=== PATIENT | male | born 1960 | race Caucasian/White ===

== ENCOUNTER 2025-03-03 13:40 | Emergency (ER) | payer MEDICARE, SELFPAY ==
[2025-03-03 13:47] VITALS: BP 160/94; PULSE 93; RESP 20; TEMP 36.9; O2SAT 98; BMI 29.8
--- NOTE | 2025-03-03 14:02 | ED_ITS ---
HPI - General Adult General Time Seen by Provider: 14:02 <Zohreh Jacobsen MD - Last Filed: 03/03/25 16:50> Date Seen: 03/03/25 <Zohreh Jacobsen MD - Last Filed: 03/03/25 16:50> Chief complaint: Unspecified Complaint, Adult <Zohreh Jacobsen MD - Last Filed: 03/03/25 16:50> Stated complaint: trouble staying warm <Zohreh Jacobsen MD - Last Filed: 03/03/25 16:50> Time Seen by Provider: 03/03/25 14:02 <Zohreh Jacobsen MD - Last Filed: 03/03/25 16:50> Source: patient and RN notes reviewed <Zohreh Jacobsen MD - Last Filed: 03/03/25 16:50> Mode of arrival: ambulatory <Zohreh Jacobsen MD - Last Filed: 03/03/25 16:50> Limitations: no limitations <Zohreh Jacobsen MD - Last Filed: 03/03/25 16:50> History of Present Illness HPI narrative: Joseph is a 64-year-old gentleman with a history of T-cell lymphoma, chronic dermatitis since 2021 who comes to the emergency room in [place] for the 1st time for evaluation regarding increasing edema of the lower extremities and redness of the body. His complaint is that he is also feeling cold. He actually describes intermittent coldness since November but now chills over the past few days. He has taken his temp but it was only 99. Over the last 5 days he has noticed increasing edema of his lower extremities in association with decreased urination. He notes he is drinking normally but is urine seems darker. A Elver notes that he has had persistent dermatitis on his hands for 3 years and on other parts of the body over the past year. However his lower extremities in the last 48 hours are much more red than normal. 4 days ago he went fishing and sustained sunburn on his right hand which blistered. He notes that he has not had any belly pain or diarrhea. Denies a cough for sore throat. He does not have any painful urination. Complicating the situation is that he was fishing on SundayFebruary 27 and sustained sun ramos to his hands and his face. His right hand blistered because of this. In regards to his T-cell lymphoma he doctors at the [facility]. This gentleman has been on Otezla in the past but because of insurance problems most recently has been using Roflumilast. He has also been on recurrent courses of prednisone throughout the past year. <Zohreh Jacobsen MD - Last Filed: 03/03/25 16:50> Related Data Home medications: Home Medications ?Medication ?Instructions ?Recorded ?Confirmed atorvastatin 40 mg tablet 40 mg PO DAILY 03/03/25/05/01 roflumilast .ROUTE 03/03/25 Previous Rx's ?Medication ?Instructions ?Recorded furosemide 20 mg tablet (Lasix) 20 mg PO DAILY #10 tab s 03/03/25 triamcinolone acetonide 0.1 % 1 applic topical BID #30 grams 03/03/25 topical cream <Zohreh Jacobsen MD - Last Filed: 03/03/25 16:50> Allergies/adverse reactions: Allergies Allergy/AdvReac Type Severity Reaction Status Date / Time No Known Drug Allergies Allergy Verified 03/03/25 13:55 <Zohreh Jacobsen MD - Last Filed: 03/03/25 16:50> Review of Systems Status of ROS: Reports: 10 or more systems reviewed and unremarkable except as noted in History and below <Zohreh Jacobsen MD - Last Filed: 03/03/25 16:50> Const: Reports: chills and fatigue; Denies: fever <Zohreh Jacobsen MD - Last Filed: 03/03/25 16:50> Eyes: Denies: change in vision <Zohreh Jacobsen MD - Last Filed: 03/03/25 16:50> ENMT: Denies: throat pain, neck pain or nasal congestion <Zohreh Jacobsen MD - Last Filed: 03/03/25 16:50> Cardio: Reports: swelling of feet/ankles; Denies: chest pain, lightheadedness or shortness of breath with exertion <Zohreh Jacobsen MD - Last Filed: 03/03/25 16:50> Resp: Denies: shortness of breath or cough <Zohreh Jacobsen MD - Last Filed: 03/03/25 16:50> GI: Denies: abdominal pain, nausea, vomiting or diarrhea <Zohreh Jacobsen MD - Last Filed: 03/03/25 16:50> : Denies: painful urination <Zohreh Jacobsen MD - Last Filed: 03/03/25 16:50> Musculo: Denies: neck pain <Zohreh Jacobsen MD - Last Filed: 03/03/25 16:50> Integ/Breast: Reports: redness, skin tenderness and skin swelling <Zohreh Jacobsen MD - Last Filed: 03/03/25 16:50> Endo: Reports: fatigue <Zohreh Jacobsen MD - Last Filed: 03/03/25 16:50> PFSH PFSH Social History: Social History Smoking Status: Never smoker Do you use any of these nicotine containing products: None Second hand tobacco smoke exposure: No How often do you have a drink containing alcohol: 2-4 times a month How many standard drinks containing alcohol do you have on a typical day: 1 or 2 AUDIT-C Alcohol total score: 2 Non-prescribed substance use: denies use <Zohreh Jacobsen MD - Last Filed: 03/03/25 16:50> Exam Narrative: Exam Narrative: Joseph is alert and oriented. EOM is full. Lips are with scabbing and peeling. Face is otherwise symmetrical. Neck is supple without lymphadenopathy. Heart with regular rate and rhythm and lungs are clear abdomen soft. Examination of the body shows redness throughout. On his hands he has peeling skin on the left hand his right hand was covered with gauze which removed really removed and he has and unroofed area of open blister on the right hand. Erythema extends onto the trunk. Lower extremities with dark erythema and 2+ edema. Does appear to be tender to the touch. <Zohreh Jacobsen MD - Last Filed: 03/03/25 16:50> Const: Vital Signs, click to edit/add: Vital Signs - 24 hr 03/03/25 13:47 03/03/25 15:40 03/03/25 17:40 Temperature 98.4 F Pulse Rate [Pulse Oximeter] 93 78 87 Respiratory Rate 20 16 16 Blood Pressure [Le ft Upper Arm] 160/94 H 147/86 H 144/89 H Pulse Oximetry 98 98 96 Oxygen Delivery Me thod Room Air Room Air Room Air <Zohreh Jacobsen MD - Last Filed: 03/03/25 16:50> Vital Signs, click to edit/add: Vital Signs - 24 hr 03/03/25 13:47 03/03/25 15:40 03/03/25 17:40 Temperature 98.4 F Pulse Rate [Pulse Oximeter] 93 78 87 Respiratory Rate 20 16 16 Blood Pressure [Le ft Upper Arm] 160/94 H 147/86 H 144/89 H Pulse Oximetry 98 98 96 Oxygen Delivery Me thod Room Air Room Air Room Air <Danis Blanton MD - Last Filed: 03/03/25 18:20> Documenting provider has reviewed patient's vital signs: yes <Zohreh Jacobsen MD - Last Filed: 03/03/25 16:50> Course Course ED Course: Differential diagnosis includes but is not limited to vasculitis, Duran- Mio, drug reaction, UTI. At this time will place IV and draw labs to include CBC, comprehensive, sed rate, CRP, urinalysis. Will also do EKG troponin chest x-ray. Plan on speaking to the [facility] specialist in regards to this gentleman once labs have been returned. <Zohreh Jacobsen MD - Last Filed: 03/03/25 16:50> Reevaluation(s) Reevaluation #1: Labs are reassuring with normal white count mildly elevated CRP of 1 point 6. ProBNP is normal at 25, kidney function normal with a creatinine of 0.9 and sed rate is 14. <Zohreh Jacobsen MD - Last Filed: 03/03/25 16:50> Vital Signs Vital signs: Initial Vital Signs Temperature 98.4 F 03/03/25 13:47 Temperature Source Oral 03/03/25 13:47 Pulse Rate 93 03/03/25 13:47 Respiratory Rate 20 03/03/25 13:47 Blood Pressure 160/94 H 03/03/25 13:47 Blood Pressure Mean 116 H 03/03/25 13:47 Blood Pressure Position Sitting 03/03/25 13:47 Pulse Oximetry 98 03/03/25 13:47 Oxygen Delivery Method Room Air 03/03/25 13:47 Vital Signs Temperature 98.4 F 03/03/25 13:47 Pulse Rate 93 03/03/25 13:47 Respiratory Rate 20 03/03/25 13:47 Blood Pressure 160/94 H 03/03/25 13:47 Pulse Oximetry 98 03/03/25 13:47 Oxygen Delivery Method Room Air 03/03/25 13:47 Temperature 98.4 F 03/03/25 13:47 Pulse Rate 87 03/03/25 17:40 Respiratory Rate 16 03/03/25 17:40 Blood Pressure 144/89 H 03/03/25 17:40 Pulse Oximetry 96 03/03/25 17:40 Oxygen Delivery Method Room Air 03/03/25 17:40 <Zohreh Jacobsen MD - Last Filed: 03/03/25 16:50> Initial Vital Signs Temperature 98.4 F 03/03/25 13:47 Temperature Source Oral 03/03/25 13:47 Pulse Rate 93 03/03/25 13:47 Respiratory Rate 20 03/03/25 13:47 Blood Pressure 160/94 H 03/03/25 13:47 Blood Pressure Mean 116 H 03/03/25 13:47 Blood Pressure Position Sitting 03/03/25 13:47 Pulse Oximetry 98 03/03/25 13:47 Oxygen Delivery Method Room Air 03/03/25 13:47 Vital Signs Temperature 98.4 F 03/03/25 13:47 Pulse Rate 93 03/03/25 13:47 Respiratory Rate 20 03/03/25 13:47 Blood Pressure 160/94 H 03/03/25 13:47 Pulse Oximetry 98 03/03/25 13:47 Oxygen Delivery Method Room Air 03/03/25 13:47 Temperature 98.4 F 03/03/25 13:47 Pulse Rate 87 03/03/25 17:40 Respiratory Rate 16 03/03/25 17:40 Blood Pressure 144/89 H 03/03/25 17:40 Pulse Oximetry 96 03/03/25 17:40 Oxygen Delivery Method Room Air 03/03/25 17:40 <Danis Blanton MD - Last Filed: 03/03/25 18:20> Medical Decision Making MDM Narrative Medical decision making narrative: 1. Sunburn-on hands and face. Covered with Adaptic dressing on right hand were blisters have broken open. 2. Erythema-confluent throughout the body. Associated with lower extremity edema. Labs are reassuring. Currently awaiting discussion with [facility] 3. Disposition-this case will be signed out to my colleague Dr. Blanton. <Zohreh Jacobsen MD - Last Filed: 03/03/25 16:50> 1. Sunburn-on hands and face. Covered with Adaptic dressing on right hand were blisters have broken open. 2. Erythema-confluent throughout the body. Associated with lower extremity edema. Labs are reassuring. Currently awaiting discussion with [facility] 3. Disposition-this case will be signed out to my colleague Dr. Blanton. 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 I then was able to speak with a dermatology resident, Dr. Workman, who works with his regular spooler operator automatic. They will be able to fit him in for an appointment tomorrow morning. He is okay to return home. This spooler operator automatic stated that he would be okay for him to take Lasix for the edema and I did also provide a prescription for triamcinolone cream. <Danis Blanton MD - Last Filed: 03/03/25 18:20> Lab Data Lab results reviewed: Yes I reviewed the patient's lab results <Zohreh Jacobsen MD - Last Filed: 03/03/25 16:50> Labs: Lab Results 03/03/25 03/03/25 03/03/25 Range/Units 14:50 14:57 15:12 WBC 6.10 (4.50-11.00) K/uL RBC 4.86 (4.30-5.90) m/uL Hgb 14.7 (13.5-17.5) gm/dL Hct 43.0 (37.0-53.0) % MCV 89 (80-100) fL MCH 30 (26-34) pg MCHC 34 (32-36) gm/dL RDW Coeff of Jesusita 11.7 (11.5-15.5) % Plt Count 212 (140-440) K/uL Neut % (Auto) 58.2 (42.0-72.0) % Lymph % (Auto) 15.1 L (20-44) % Montezuma % (Auto) 21.6 H (0.0-11.0) % Eos % (Auto) 2.8 (0.0-7.0) % Baso % (Auto) 0.8 (0.0-3.0) % Neut # (Auto) 3.55 (1.7-7.0) K/uL Lymph # (Auto) 0.90 (0.90-2.90) K/uL [place] # (Auto) 1.30 H (0.00-0.90) K/UL Eos # (Auto) 0.17 (0.00-0.50) K/uL Baso # (Auto) 0.05 (0.00-0.30) K/uL Abs Immat Gran (auto) 0.09 (0.00-0.30) K/uL Imm/Tot Granulo (auto) 1.5 % ESR 14 (2-15) mm/hr Sodium 140 (135-149) mmol/L Potassium 3.7 (3.6-5.1) mmol/L Chloride 102 (96-114) mmol/L Carbon Dioxide 28 (20-32) mmol/L Anion Gap 10 (7-15) mEq/L BUN 19 (7-30) mg/dL Creatinine 0.9 (0.5-1.5) mg/dL Estimated Creat Clear 73.65 Estimated GFR 95 ml/min Glucose 193 H (60-115) mg/dL Calcium 9.2 (8.4-10.6) mg/dL Total Bilirubin 1.5 (0.1-1.5) mg/dL AST 41 H (12-35) U/L ALT 41 (4-50) U/L Alkaline Phosphatase 76 (40-150) U/L Troponin I < 0.01 (0.01-0.04) ng/mL C-Reactive Protein 1.6 H (0.5-1.0) mg/dL NT-Pro-B Natriuret Pep 25 (See Note) pg/mL Total Protein 7.5 (6.0-8.3) g/dL Albumin 4.5 (3.3-5.0) g/dL TSH 2.270 (0.270-4.200) uIU/mL Urine Color Yellow (Yellow) Urine Appearance Clear (Clear) Urine pH 5.5 (5.0-8.5) Ur Specific B[place]ule 1.025 (1.000-1.030) Urine Protein Negative (Negative) Urine Glucose (UA) Negative (Negative) Urine Ketones Negative (Negative) Urine Blood Trace-intact A (Negative) Urine Nitrite Negative (Negative) Urine Bilirubin Negative (Negative) Urine Urobilinogen 0.2 (0.2-1.0) Ur Leukocyte Esterase Negative (Negative) Urine RBC 0-2 (0-2) Urine WBC 0-2 (0-5) Ur Squamous Epith Cells None (None-Few) Urine Bacteria None (None) Lab Acknowledgement Test Added <Zohreh Jacobsen MD - Last Filed: 03/03/25 16:50> Lab Results 03/03/25 03/03/25 03/03/25 Range/Units 14:50 14:57 15:12 WBC 6.10 (4.50-11.00) K/uL RBC 4.86 (4.30-5.90) m/uL Hgb 14.7 (13.5-17.5) gm/dL Hct 43.0 (37.0-53.0) % MCV 89 (80-100) fL MCH 30 (26-34) pg MCHC 34 (32-36) gm/dL RDW Coeff of Jesusita 11.7 (11.5-15.5) % Plt Count 212 (140-440) K/uL Neut % (Auto) 58.2 (42.0-72.0) % Lymph % (Auto) 15.1 L (20-44) % Montezuma % (Auto) 21.6 H (0.0-11.0) % Eos % (Auto) 2.8 (0.0-7.0) % Baso % (Auto) 0.8 (0.0-3.0) % Neut # (Auto) 3.55 (1.7-7.0) K/uL Lymph # (Auto) 0.90 (0.90-2.90) K/uL [place] # (Auto) 1.30 H (0.00-0.90) K/UL Eos # (Auto) 0.17 (0.00-0.50) K/uL Baso # (Auto) 0.05 (0.00-0.30) K/uL Abs Immat Gran (auto) 0.09 (0.00-0.30) K/uL Imm/Tot Granulo (auto) 1.5 % ESR 14 (2-15) mm/hr Sodium 140 (135-149) mmol/L Potassium 3.7 (3.6-5.1) mmol/L Chloride 102 (96-114) mmol/L Carbon Dioxide 28 (20-32) mmol/L Anion Gap 10 (7-15) mEq/L BUN 19 (7-30) mg/dL Creatinine 0.9 (0.5-1.5) mg/dL Estimated Creat Clear 73.65 Estimated GFR 95 ml/min Glucose 193 H (60-115) mg/dL Calcium 9.2 (8.4-10.6) mg/dL Total Bilirubin 1.5 (0.1-1.5) mg/dL AST 41 H (12-35) U/L ALT 41 (4-50) U/L Alkaline Phosphatase 76 (40-150) U/L Troponin I < 0.01 (0.01-0.04) ng/mL C-Reactive Protein 1.6 H (0.5-1.0) mg/dL NT-Pro-B Natriuret Pep 25 (See Note) pg/mL Total Protein 7.5 (6.0-8.3) g/dL Albumin 4.5 (3.3-5.0) g/dL TSH 2.270 (0.270-4.200) uIU/mL Urine Color Yellow (Yellow) Urine Appearance Clear (Clear) Urine pH 5.5 (5.0-8.5) Ur Specific [place] 1.025 (1.000-1.030) Urine Protein Negative (Negative) Urine Glucose (UA) Negative (Negative) Urine Ketones Negative (Negative) Urine Blood Trace-intact A (Negative) Urine Nitrite Negative (Negative) Urine Bilirubin Negative (Negative) Urine Urobilinogen 0.2 (0.2-1.0) Ur Leukocyte Esterase Negative (Negative) Urine RBC 0-2 (0-2) Urine WBC 0-2 (0-5) Ur Squamous Epith Cells None (None-Few) Urine Bacteria None (None) Lab Acknowledgement Test Added <Danis Blanton MD - Last Filed: 03/03/25 18:20> Imaging Data Chest x-ray: Attestation: I have reviewed the pertinent imaging results. <Zohreh Jacobsen MD - Last Filed: 03/03/25 16:50> Radiologist's impression: No pneumothorax or pleural effusion. 2.7 cm nodular density in the right hilar region. Lungs otherwise clear. Cardiac and mediastinal contours otherwise within normal limits. Upper abdomen and osseous structures as imaged show no acute abnormality. IMPRESSION: Right hilar density concerning for pulmonary nodule or lymphadenopathy. <Zohreh Jacobsen MD - Last Filed: 03/03/25 16:50> ECG Data Attestation: I personally reviewed and interpreted this ECG as follows: <Zohreh Jacobsen MD - Last Filed: 03/03/25 16:50> Interpretation: EKG by my read shows sinus rhythm at a rate of 87. I do not note any acute ST or T-wave changes. Good R-wave progression. QT and FL intervals within normal limits. <Zohreh Jacobsen MD - Last Filed: 03/03/25 16:50> Discharge Plan Discharge Clinical Impression: Mycosis fungoides <Zohreh Jacobsen MD - Last Filed: 03/03/25 16:50> Patient Disposition: Home, Self-Care <Zohreh Jacobsen MD - Last Filed: 03/03/25 16:50> Condition: Stable <Zohreh Jacobsen MD - Last Filed: 03/03/25 16:50> Additional Instructions: Follow-up with dermatology clinic tomorrow morning. You will receive a call for specifics regarding time. Take Lasix as needed and directed. Also a prescription for triamcinolone cream is provided. <Zohreh Jacobsen MD - Last Filed: 03/03/25 16:50> Prescriptions: New triamcinolone acetonide 0.1 % cream 1 applic topical BID Qty: 30 0RF furosemide [Lasix] 20 mg tablet 20 mg PO DAILY Qty: 10 2RF No Action roflumilast .ROUTE atorvastatin 40 mg tablet 40 mg PO DAILY <Zohreh Jacobsen MD - Last Filed: 03/03/25 16:50> Follow Up/Referrals: Lv Samuel MD [Primary Care Provider, Family Practice] <Zohreh Jacobsen MD - Last Filed: 03/03/25 16:50> Stand Alone Forms: [employer] Info Instructions <Zohreh Jacobsen MD - Last Filed: 03/03/25 16:50>
--- OUTSIDE RECORDS SUMMARY | 2025-03-03 14:51 | XMS_ITS | Encounter Summary ---
Author Organization [facility] Address [address] [place] [address] Care Team Providers Care Flow Match Sofa Cutter Name Role Phone Ebony Avina MD Unavailable [phone] Lv Samuel MD Primary Care Provider [phone] Diamond Blanchard [facility] Unavailable Diamond Blanchard [facility] Unavailable [phone] Ebony Avina MD Unavailable [phone] Ebony Avina MD Unavailable [phone] Encounter Details Date Type Department Care Team (Late st Contact Info) Description 11/05/2024 MyC Medical Advice [facility] Dermatology [facility] [address] [address] Diamond Blanchard, [facility] [address] [place], [place] [id number] Social History Tobacco Use Types Packs/Day Years Used Date Smoking Tobacco: Former Cigarettes Q uit: 02/25/1993 Smokeless Tobacco: Never PHQ-2 Answer Date Recorded PHQ-2 Score 0 11/05/2024 Adolescent Education Answer Date Record ed Getting School Help Needed Not on file 07/22 Sex and Gender Information Value Date Recorded Sex Assigned at Not on file 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 Gender Identity Not on file Sexual Orientation Not on file documented as of this encounter Plan of Treatment Upcoming Encounters Date Type Department Care Team (Late st Contact Info) Description 03/30/2025 10:00 AM CDT Office Visit [facility] D[facility] Clinic [place] [id number] [facility] [address] [place] [phone] Ebony Avina MD [address] [address] documented as of this encounter Visit Diagnoses Not on filedocumented in this encounter Care Teams Flow Match Sofa Cutter Relationship Specialty Start Date End Date Lv Samuel MD [facility] [id number] [place] [address] PCP - General Family Medicine 09/25/23 Ebony Avina MD [address] [address] Dermatology 01/26/23 Diamond Blanchard [facility] [address] [place] [address] LUCI MENDEZ [phone] Pharmacist Pharmacist 11/14/23 Diamond Blanchard [facility] [address] [place] [address] LUCI MENDEZ [id number] Assigned MTM Pharmacist 11/30/23 Ebony Avina MD [address] [address] Assigned Surgical Provider 09/29/24 Ebony Avina MD [address] [address] Assigned Dermatology Provider 12/28/24 documented as of this encounter
--- OUTSIDE RECORDS SUMMARY | 2025-03-03 14:51 | XMS_ITS | Encounter Summary ---
Author Organization [facility] Address [address] [place] [address] Care Team Providers Care Hand Chain Maker Name Role Phone Ebony Avina MD Unavailable [phone] Lv Samuel MD Primary Care Provider [phone] Diamond Blanchard [facility] Unavailable [phone] Diamond Blanchard [facility] Unavailable [phone] Ebony Avina MD Unavailable [phone] Ebony Avina MD Unavailable [phone] Encounter Details Date Type Department Care Team (Late st Contact Info) Description 11/07/2024 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 Gender Identity Not on file Sexual Orientation Not on file documented as of this encounter Plan of Treatment Upcoming Encounters Date Type Department Care Team (Late st Contact Info) Description 03/30/2025 10:00 AM CDT Office Visit [facility] D[facility]atology [facility] [place] [address] [facility] [address] [place] [phone] Ebony Avina MD [address] [address] documented as of this encounter Visit Diagnoses Not on filedocumented in this encounter Care Teams Hand Chain Maker Relationship Specialty Start Date End Date Lv Samuel MD [facility] [id number] [place] [address] PCP - General Family Medicine 09/25/23 Ebony Avina MD [address] [address] Dermatology 01/26/23 Diamond Blanchard [facility] [address] [place] [address] LUCI MENDEZ [phone] Pharmacist Pharmacist 11/14/23 Diamond Blanchard [facility] [address] [place] [address] LUCI MENDEZ [phone] Assigned MTM Pharmacist 11/30/23 Ebony Avina MD [address] [address] Assigned Surgical Provider 09/29/24 Ebony Avina MD [address] [address] Assigned Dermatology Provider 12/28/24 documented as of this encounter
--- OUTSIDE RECORDS SUMMARY | 2025-03-03 14:51 | XMS_ITS | Encounter Summary ---
Author Organization [facility] Address [address] [place] [address] Care Team Providers Care Unit Control Worker Name Role Phone Ebony Avina MD Unavailable [phone] Lv Samuel MD Primary Care Provider [phone] Diamond Blanchard [facility] Unavailable [phone] Diamond Blanchard [facility] Unavailable [phone] Micky Umana MD Unavailable [phone] Ebony Avina MD Unavailable [phone] Micky Umana MD Unavailable [phone] Ebony Avina MD Unavailable [phone] Ebony Avina MD Unavailable [phone] Encounter Details Date Type Department Care Team (Late st Contact Info) Description 02/24/2024 [facility] Medical Advice [facility] [place] [address] [facility] [address] [place] [address] Ebony Avina MD [address] [facility] [address] [place] [address] Social History Tobacco Use Types Packs/Day Years Used Date Smoking Tobacco: Former Cigarettes Q uit: 02/25/1993 Smokeless Tobacco: Never PHQ-2 Answer Date Recorded PHQ-2 Score 0 10/15/2023 Adolescent Education Answer Date Record ed Getting School Help Needed Not on file 07/22 Sex and Gender Information Value Date Recorded Sex Assigned at Not on file 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 Gender Identity Not on file Sexual Orientation Not on file documented as of this encounter Plan of Treatment Upcoming Encounters Date Type Department Care Team (Late st Contact Info) Description 03/30/2025 10:00 AM CDT Office Visit [facility] [address]rd [place] [phone] Ebony Avina MD [address] [place] [address] documented as of this encounter Visit Diagnoses Not on filedocumented in this encounter Care Teams Unit Control Worker Relationship Specialty Start Date End Date Lv Samuel MD [address] [address] PCP - General Family Medicine 09/25/23 Ebony Avina MD [address] [place] [address] Dermatology 01/26/23 Diamond Blanchard [facility] [address] [place] [address] LUCI MENDEZ [address] Pharmacist Pharmacist 11/14/23 Diamond Blanchard [facility] [address] [place] [address] LUCI MENDEZ [id number] Assigned MTM Pharmacist 11/30/23 Micky Umana MD [address] [place] [address] Assigned Surgical Provider 11/30/23 Ebony Avina MD [address] [address] Assigned Surgical Provider 06/30/24 Micky Umana MD [address] [place] [address] Assigned Surgical Provider 08/30/24 Ebony Avina MD [address] [address] Assigned Surgical Provider 09/29/24 Ebony Avina MD [address] [address] Assigned Dermatology Provider 12/28/24 documented as of this encounter
--- OUTSIDE RECORDS SUMMARY | 2025-03-03 14:51 | XMS_ITS | Encounter Summary ---
Author Organization [place] Address [address] [place] [address] Care Team Providers Care Digital Operations Analyst Name Role Phone Ebony Avina MD Unavailable Lv Samuel MD Primary Care Provider [phone] Diamond Blanchard [facility] Unavailable [phone] Diamond Blanchard [facility] Unavailable [phone] Micky Umana MD Unavailable [phone] Ebony Avina MD Unavailable [phone] Micky Umana MD Unavailable [phone] Ebony Avina MD Unavailable [phone] Ebony Avina MD Unavailable [phone] Encounter Details Date Type Department Care Team (Latest Contact Info) Description 06/10/2024 [facility] Medical Advice [facility] [place] [address] [place] [address] Diamond Blanchard, [address] [place] [address] Other atopic dermatitis (Primary Dx) Social History Tobacco Use Types Packs/Day Years Used Date Smoking Tobacco: Former Cigarettes Q uit: 02/25/1993 Smokeless Tobacco: Never PHQ-2 Answer Date Recorded PHQ-2 Score 0 10/15/2023 Adolescent Education Answer Date Record ed Getting School Help Needed Not on file 07/22 Sex and Gender Information Value Date Recorded Sex Assigned at Not on file 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 Diamond Blanchard, PharmD [facility] Pharmacist documented in this encounter Plan of Treatment Upcoming Encounters Date Type Department Care Team (Late st Contact Info) Description 03/30/2025 10:00 AM CDT Office Visit [facility] [address] 3rd [place] [address] Ebony Avina MD [address] [place] [address] documented as of this encounter Visit Diagnoses Diagnosis Other atopic dermatitis- Primary documented in this encounter Care Teams Digital Operations Analyst Relationship Specialty Start Date End Date Lv Samuel MD [facility] [id number] [place] [address] PCP - General Family Medicine 09/25/23 Ebony Avina MD [address] [place] [address]165 Dermatology 01/26/23 Diamond Blanchard RPH [address] [facility] [place]ENDEZ [address] Pharmacist Pharmacist 11/14/23 Diamond Blanchard RPH [address] [facility] [place] [address] Assigned MTM Pharmacist 11/30/23 Micky Umana MD [address] [place] [address] Assigned Surgical Provider 11/30/23 Ebony Avina MD [address] [address] Assigned Surgical Provider 06/30/24 Micky Umana MD [address] [place] [address] Assigned Surgical Provider 08/30/24 Ebony Avina MD [address] [address] Assigned Surgical Provider 09/29/24 Ebony Avina MD [address] [address] Assigned Dermatology Provider 12/28/24 documented as of this encounter
--- OUTSIDE RECORDS SUMMARY | 2025-03-03 14:51 | XMS_ITS | Encounter Summary ---
Author Organization [place] Address [address] [place] [address] Care Team Providers Care Elastic Yarn Twister Helper Name Role Phone Ebony Avina MD Unavailable Lv Samuel MD Primary Care Provider [phone] Diamond Blanchard [facility] Unavailable [phone] Diamond Blanchard [facility] Unavailable [phone] Ebony Avina MD Unavailable [phone] Encounter Details Date Type Department Care Team (Late st Contact Info) Description 03/02/2025 [facility] [address] 3rd [place] [address] Ebony Avina MD [address] [place] [address] Social History Tobacco Use Types Packs/Day Years Used Date Smoking Tobacco: Former Cigarettes Q uit: 02/25/1993 Smokeless Tobacco: Never PHQ-2 Answer Date Recorded PHQ-2 Score 0 11/05/2024 Adolescent Education Answer Date Record ed Getting School Help Needed Not on file 07/22 Sex and Gender Information Value Date Recorded Sex Assigned at Not on file 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 Gender Identity Not on file Sexual Orientation Not on file documented as of this encounter Plan of Treatment Upcoming Encounters Date Type Department Care Team (Late st Contact Info) Description 03/30/2025 10:00 AM CDT Office Visit [facility] [place] [address] [facility] [address] 3rd [place] [address] Ebony Avina MD [address] [facility] [address] [address] documented as of this encounter Visit Diagnoses Not on filedocumented in this encounter Care Teams Elastic Yarn Twister Helper Relationship Specialty Start Date End Date Lv Samuel MD [facility] [address] [place] [address] PCP - General Family Medicine 09/25/23 Ebony Avina MD [address] [address] Dermatology 01/26/23 Diamond Blanchard [facility] [address] [place] [address] LU[place] MENDEZ [address] Pharmacist Pharmacist 11/14/23 Diamond Blanchard [facility] [address] [place] [address] [place]DEZ [address] Assigned MTM Pharmacist 11/30/23 Ebony Avina MD [address] [place] [address] Assigned Dermatology Provider 12/28/24 documented as of this encounter
--- OUTSIDE RECORDS SUMMARY | 2025-03-03 14:51 | XMS_ITS | Encounter Summary ---
Author Organization [place] Address [address] [place] [address] Care Team Providers Care Lead Former Name Role Phone Ebony Avina MD Unavailable [phone] Ebony Avina MD Unavailable [phone] Lv Samuel MD Primary Care Provider [phone] [facility] Unavailable [phone] [facility] [facility] Unavailable [phone] Micky Umana MD Unavailable [phone] Ebony Avina MD Unavailable [phone] Micky Umana MD Unavailable [phone] Ebony Avina MD Unavailable [phone] Ebony Avina MD Unavailable [phone] Encounter Details Date Type Department Care Team (Late st Contact Info) Description 11/01/2023 [facility] [place] [address] [address] Vivi Bowie, ZAKIA Social History Tobacco Use Types Packs/Day Years Used Date Smoking Tobacco: Former Cigarettes Q uit: 02/25/1993 Smokeless Tobacco: Never PHQ-2 Answer Date Recorded PHQ-2 Score 0 10/15/2023 Adolescent Education Answer Date Record ed Getting School Help Needed Not on file 07/22 Sex and Gender Information Value Date Recorded Sex Assigned at Not on file 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 Gender Identity Not on file Sexual Orientation Not on file documented as of this encounter Plan of Treatment Upcoming Encounters Date Type Department Care Team (Late st Contact Info) Description 03/30/2025 10:00 AM CDT Office Visit [facility] [address]rd [place] [address] Ebony Avina MD [address] [address] documented as of this encounter Visit Diagnoses Not on filedocumented in this encounter Care Teams Lead Former Relationship Specialty Start Date End Date Lv Samuel MD [facility] [id number] [place] [address] PCP - General Family Medicine 09/25/23 Ebony Avina MD [address] [place] [address] Dermatology 01/26/23 Ebony Avina MD [address] [place] [address] Assigned Surgical Provider 03/03/23 Diamond Blanchard RPH [address] [place] [address] LUCI MENDEZ [address] Pharmacist Pharmacist 11/14/23 Diamond Blanchard RPH [address] [place] [address] LU[place] MENDEZ [address] Assigned MTM Pharmacist 11/30/23 Micky Umana MD [address] [place] [address] [place] [address] Assigned Surgical Provider 11/30/23 Ebony Avina MD [address] [place] [address] Assigned Surgical Provider 06/30/24 Micky Umana MD [address] [place] [address] Assigned Surgical Provider 08/30/24 Ebony Avina MD [address] [address] Assigned Surgical Provider 09/29/24 Ebony Avina MD [address] [place] [address] Assigned Dermatology Provider 12/28/24 documented as of this encounter
--- OUTSIDE RECORDS SUMMARY | 2025-03-03 14:51 | XMS_ITS | Encounter Summary ---
Author Organization [place] Address [address] [place] [address] Care Team Providers Care Branch Logistics Supervisor Name Role Phone Ebony Avina MD Unavailable [phone] Lv Samuel MD Primary Care Provider [phone] Diamond Blanchard [facility] Unavailable [phone] Diamond Blanchard [facility] Unavailable [phone] Ebony Avina MD Unavailable [phone] Ebony Avina MD Unavailable [phone] Encounter Details Date Type Department Care Team (Late st Contact Info) Description 10/03/2024 [facility] Medical Advice [facility] [address]rd [place] [address] Ebony Avina MD [address] [place] [address] [address] [place], [place] [address] Social History Tobacco Use Types Packs/Day Years Used Date Smoking Tobacco: Former Cigarettes Q uit: 02/25/1993 Smokeless Tobacco: Never PHQ-2 Answer Date Recorded PHQ-2 Score 0 10/15/2023 Adolescent Education Answer Date Record ed Getting School Help Needed Not on file 07/22 Sex and Gender Information Value Date Recorded Sex Assigned at Not on file 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 Gender Identity Not on file Sexual Orientation Not on file documented as of this encounter Plan of Treatment Upcoming Encounters Date Type Department Care Team (Late st Contact Info) Description 03/30/2025 10:00 AM CDT Office Visit [facility] [address]rd [place] [address] Ebony Avina MD [address] [place] [address] [address] documented as of this encounter Visit Diagnoses Not on filedocumented in this encounter Care Teams Branch Logistics Supervisor Relationship Specialty Start Date End Date Lv Samuel MD [address] [address] PCP - General Family Medicine 09/25/23 Ebony Avina MD [address] [place] [address] [address] Dermatology 01/26/23 Diamond Blanchard [facility] [address] [place] [address] LUCI MENDEZ [address] Pharmacist Pharmacist 11/14/23 Diamond Blanchard [facility] [address] [place] [address] LUCI MENDEZ [address] Assigned MTM Pharmacist 11/30/23 Ebony Avina MD [address] [place] [address] [address] Assigned Surgical Provider 09/29/24 Ebony Avina MD [address] [place] [address] [address] Assigned Dermatology Provider 12/28/24 documented as of this encounter
--- OUTSIDE RECORDS SUMMARY | 2025-03-03 14:51 | XMS_ITS | Encounter Summary ---
Author Organization [place] Address [address] [place] [address] Care Team Providers Care Security Monitor Name Role Phone Ebony Avina MD Unavailable [phone] Lv Samuel MD Primary Care Provider [phone] Diamond Blanchard [facility] Unavailable [phone] Diamond Blanchard [facility] Unavailable [phone] Ebony Avina MD Unavailable [phone] Micky Umana MD Unavailable [phone] Ebony Avina MD Unavailable [phone] Ebony Avina MD Unavailable [phone] Encounter Details Date Type Department Care Team (Late st Contact Info) Description 08/07/2024 [facility] Medical Advice [facility] D[facility]ology [facility] [address]rd [place] [address] Ebony Avina MD [address] [address] Social History Tobacco Use Types Packs/Day Years Used Date Smoking Tobacco: Former Cigarettes Q uit: 02/25/1993 Smokeless Tobacco: Never PHQ-2 Answer Date Recorded PHQ-2 Score 0 10/15/2023 Adolescent Education Answer Date Record ed Getting School Help Needed Not on file 07/22 Sex and Gender Information Value Date Recorded Sex Assigned at Not on file 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 Still overall poorly controlled with topicals alone. Has been biopsied in the past and displayed dermatitis. Could this be connected with the acute flare on the trunk and extremities? - Recommend continuing Clobetasol ointment BID - Recommend starting Urea 20% cream BID to areas of scale - Recommend starting Otezla, MTM consult placed today 05/26/24 - Normal CMP 02/2024 Cr WNL Proposed Otezla start [place] - Day 1: 10 mg in AM - Day 2 : 0 mg in AM and 10 mg in PM - Day 3: 10 mg in AM and 20 mg in PM - Day 4: 20 mg in AM and 20 mg in PM - Day 5: 20 mg in AM and 30 mg in PM - Day 6 and thereafter: 30 mg twice daily - Future: - Excimer laser # Ill defined pink plaques on the trunk and extremities after starting Acitretin. Did not tolerate the Acitretin well, developed ill defined pruritic erythematous plaques and ill defined scaly plaques on the trunk and extremities while on the medication. Now also with scaliness on the plantar feet.Patient is still using copious amounts of clobetasol with little to no response. At this point, is it MF or potential PRP given the developing keratoderma and orange- like plaques on the trunk. Will plan for rebiopsy at this time given that we cannot totally explain the non specific rash. Given the few options given extensive sun exposure and poor tolerance to Acitretin will on restarting nbUVB since patient has a good response in the past. Will try to get home unit due to distance of travel with recent move. 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 Eczematous vs. Allergic vs. Photosensitive Dermatitis) Patient has a longstanding history of mycosis fungoides since at least ~2008. This initially presented as a flat rash on the legs and thighs; improved s/p narrowband UVB therapy at [place] x 3 months (1070 mj 7 minutes and 8 seconds). Overall rash as above, so punch biopsies done today x 2. - Punch biopsy x 2 done today 05/26/24 -Home UVB phototherapy unit Unit type: full body Diagnosis: severe mycosis fungoides Greater than 17% BSA involvement. Areas of involvement: Lower extremities, upper extremities, trunk, back and buttocks Quan skin type: I documented in this encounter Plan of Treatment Upcoming Encounters Date Type Department Care Team (Late st Contact Info) Description 03/30/2025 10:00 AM CDT Office Visit [facility] D[facility]atology [facility] [address]rd [place] [address] Ebony Avina MD [address] [place] [address] documented as of this encounter Visit Diagnoses Not on filedocumented in this encounter Care Teams Security Monitor Relationship Specialty Start Date End Date Lv Samuel MD [address] [address] PCP - General Family Medicine 09/25/23 Ebony Avina MD [address] [place] [address] Dermatology 01/26/23 Diamond Blanchard RPH [address] [place] [address] [place]CI MENDEZ [address] Pharmacist Pharmacist 11/14/23 Diamond Blanchard RPH [address] [place] [address] [place] MENDEZ [address] Assigned MTM Pharmacist 11/30/23 Ebony Avina MD [address] [address] Assigned Surgical Provider 06/30/24 Micky Umana MD [address] [place] [address] Assigned Surgical Provider 08/30/24 Ebony Avina MD [address] [place] [address] Assigned Surgical Provider 09/29/24 Ebony Avina MD [address] [place] [address] Assigned Dermatology Provider 12/28/24 documented as of this encounter
--- OUTSIDE RECORDS SUMMARY | 2025-03-03 14:51 | XMS_ITS | Encounter Summary ---
Author Organization [place] Address [address] [place] [address] Care Team Providers Care Account Manager B2B Name Role Phone Ebony Avina MD Unavailable [phone] Lv Samuel MD Primary Care Provider [phone] Diamond Blanchard [facility] Unavailable [phone] Diamond Blanchard [facility] Unavailable [phone] Micky Umana MD Unavailable [phone] Ebony Avina MD Unavailable [phone] Micky Umana MD Unavailable [phone] Ebony Avina MD Unavailable [phone] Ebony Avina MD Unavailable [phone] Encounter Details Date Type Department Care Team (Late st Contact Info) Description 04/07/2024 [facility] [place] [place] [address] [facility] [address]rd [place] [address] Ebony Avina MD 420 [facility] [address] [place] [address] Hand dermatitis Social History Tobacco Use Types Packs/Day Years Used Date Smoking Tobacco: Former Cigarettes Q uit: 02/25/1993 Smokeless Tobacco: Never PHQ-2 Answer Date Recorded PHQ-2 Score 0 10/15/2023 Adolescent Education Answer Date Record ed Getting School Help Needed Not on file 07/22 Sex and Gender Information Value Date Recorded Sex Assigned at Not on file 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 Gender Identity Not on file Sexual Orientation Not on file documented as of this encounter Plan of Treatment Upcoming Encounters Date Type Department Care Team ([facility] st Contact Info) Description 03/30/2025 10:00 AM CDT Office Visit [facility] [address]rd [place] [address] Ebony Avina MD [address] [place] [address] documented as of this encounter Visit Diagnoses Diagnosis Hand dermatitis Contact dermatitis and other eczema, due to unspecified cause documented in this encounter Care Teams Account Manager B2B Relationship Specialty Start Date End Date Lv Samuel MD [address] [address] PCP - General Family Medicine 09/25/23 Ebony Avina MD [address] [place] [address] Dermatology 01/26/23 Diamond Blanchard R[facility] [address] [place] [address] LUCI MENDEZ [address] Pharmacist Pharmacist 11/14/23 Diamond Blanchard [facility] [address] [place] [address] LUCI MENDEZ [phone] Assigned MTM Pharmacist 11/30/23 Micky Umana MD [address] [place] [address] Assigned Surgical Provider 11/30/23 Ebony Avina MD [address] [address] Assigned Surgical Provider 06/30/24 Micky Umana MD [address] [place] [address] Assigned Surgical Provider 08/30/24 Ebony Avina MD [address] [address] Assigned Surgical Provider 09/29/24 Ebony Avina MD [address] [address] Assigned Dermatology Provider 12/28/24 documented as of this encounter
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
--- OUTSIDE RECORDS SUMMARY | 2025-03-03 14:51 | XMS_ITS | Encounter Summary ---
Author Organization [facility] Address [address] [place] [address] Care Team Providers Care Receptionist/Telephone Operator Name Role Phone Ebony Avina MD Unavailable Lv Samuel MD Primary Care Provider [phone] Diamond Blanchard [facility] Unavailable [phone] Diamond Blanchard [facility] Unavailable [phone] Ebony Avina MD Unavailable [phone] Encounter Details Date Type Department Care Team (Late st Contact Info) Description 01/05/2025 [facility] [address] 3rd [place] [address] Ebony Avina MD [address] [facility] [address] [place] [address] Hand dermatitis (Primary Dx); Psoriasiform dermatitis Social History Tobacco Use Types Packs/Day Years Used Date Smoking Tobacco: Former Cigarettes Q uit: 02/25/1993 Smokeless Tobacco: Never PHQ-2 Answer Date Recorded PHQ-2 Score 0 11/05/2024 Adolescent Education Answer Date Record ed Getting School Help Needed Not on file 07/22 Sex and Gender Information Value Date Recorded Sex Assigned at Not on file 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 It should ship soon. Routing back to authorizing provider for updates. * Telephone Encounter - Buck Osorio EMT - 01/08/2025 7:32 AM CDT Called [facility]. The person I spoke with said that the cost of the unit is $257 dollars which is the medicare deductible. However right now they are looking into whether or not his secondary insurance will flower picker the deductible of $257. They also said that they have spoken with Joseph as well.I will send an update to him. RAJESH [facility] Support [facility] Employed by [facility] * Telephone Encounter - Pedro Navarro - 01/06/2025 10:03 AM CDT Called [facility], it is pending insurance verification and authorization with the health plan. They state they are behind about 1.5 weeks behind and there is no estimate on when this patient's PA may come back. RAJESH [place] * Telephone Encounter - Pedro Navarro - 01/06/2025 10:03 AM CDT Images from the original note were not included. Ebony Avina MD [facility] Dermatology Adult Csc1 hour ago (8:44 AM) I sent the prednisone. Where do we stand on his home phototherapy unit? documented in this encounter Plan of Treatment Upcoming Encounters Date Type Department Care Team (Late st Contact Info) Description 03/30/2025 10:00 AM CDT Office Visit [facility] [address] [place] [address] Ebony Avina MD [address] [address] documented as of this encounter Visit Diagnoses Diagnosis Hand dermatitis- Primary Contact dermatitis and other eczema, due to unspecified cause Psoriasiform dermatitis Other psoriasis and similar disorders documented in this encounter Care Teams Receptionist/Telephone Operator Relationship Specialty Start Date End Date Lv Samuel MD [facility] [address] [place] [address] PCP - General Family Medicine 09/25/23 Ebony Avina MD [address] [place] [address] MD Dermatology 01/26/23 Diamond Blanchard [facility] [address] [place] [address] LUCI MENDEZ [address] Pharmacist Pharmacist 11/14/23 Diamond Blanchard Edwin [address] [place] [address] LUCI MENDEZ [address] Assigned MTM Pharmacist 11/30/23 Ebony Avina MD [address] [place] [address] Assigned Dermatology Provider 12/28/24 documented as of this encounter
--- OUTSIDE RECORDS SUMMARY | 2025-03-03 14:51 | XMS_ITS | Encounter Summary ---
Author Organization [facility] Address [address] [place] [address] Care Team Providers Care Operating System Programmer Name Role Phone Ebony Avina MD Unavailable [phone] Lv Samuel MD Primary Care Provider [phone] Diamond Blanchard [facility] Unavailable [phone] Diamond Blanchard [facility] Unavailable [phone] Ebony Avina MD Unavailable [phone] Micky Umana MD Unavailable [phone] Ebony Avina MD Unavailable [phone] Ebony Avina MD Unavailable [phone] Reason for Referral * Consultation (Routine: Next available opening) - Pending Review Specialty Diagnoses / Procedures Referred By Nina haley Referred To Contact Allergy Diagnoses Other atopic dermatitis Ebony Avina MD [address] [place] [address] [address] [place] [address] Phone: tel: fax: Referral ID Status Reason Start Date Expiration Date V isits Requested Visits Authorized [id number] Pending Review 08/11/2024 08/11/2025 1 1 Question Answer Reason for Referral: Patch testing Scheduling Instructions: [facility] will call you to coordinate your care as prescribed by the provider. If you don t hear from a bank representative within 2 business days, please call [phone] Additional Information: To see Dr Umana- ? milk and other food allergies. Comments Please be aware that coverage of these services is subject to the terms and limitations of your health insurance plan. Call member services at your health plan with any benefit or coverage questions. [facility] will call you to coordinate your care as prescribed by the provider. 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[employer] Gender Identity Not on file Sexual Orientation Not on file documented as of this encounter Plan of Treatment Upcoming Encounters Date Type Department Care Team ([facility] Contact Info) Description 03/30/2025 10:00 AM CDT Office Visit [facility] [address] [address] Ebony Avina MD [address] [place] [address] Scheduled Referrals Name Type Priority Associated Diagnoses Orde r Schedule Adult Allergy/Asthma Bilingual Medical Assistant Referral Referral Routine: Next available opening Other atopic dermatitis Expected: 08/11/2024 (Approximate), Expires: 08/11/2025 documented as of this encounter Visit Diagnoses Diagnosis Other atopic dermatitis- Primary documented in this encounter Care Teams Operating System Programmer Relationship Specialty Start Date End Date Lv Samuel MD [facility] [id number] [place] [address] PCP - General Family Medicine 09/25/23 Ebony Avina MD [address] [address] Dermatology 01/26/23 Diamond Blanchard [facility] [address] [place] [address] LUCI MENDEZ [id number] Pharmacist Pharmacist 11/14/23 Diamond Blanchard [facility] [address] [place] [address] LUCI MENDEZ [phone] Assigned MTM Pharmacist 11/30/23 Ebony Avina MD [address] 838815 Assigned Surgical Provider 06/30/24 Micky Umana MD [address] [place] [id number] Assigned Surgical Provider 08/30/24 Ebony Avina MD [address] [address]16[address] Assigned Surgical Provider 09/29/24 Ebony Avina MD [address] [id number] Assigned Dermatology Provider 12/28/24 documented as of this encounter
--- OUTSIDE RECORDS SUMMARY | 2025-03-03 14:51 | XMS_ITS | Encounter Summary ---
Author Organization [facility] Address [address] [place] [address] Care Team Providers Care Space And Missile Defense Operations Name Role Phone Ebony Avina MD Unavailable Lv Samuel MD Primary Care Provider [phone] Diamond Blanchard [facility] Unavailable [phone] Diamond Blanchard [facility] Unavailable [phone] Ebony Avina MD Unavailable [phone] Encounter Details Date Type Department Care Team (Late st Contact Info) Description 01/17/2025 [facility] Medical Advice [facility] [address] [place] [address] Ebony Avina MD [address] [address] Social History Tobacco Use Types Packs/Day Years Used Date Smoking Tobacco: Former Cigarettes Q uit: 02/25/1993 Smokeless Tobacco: Never PHQ-2 Answer Date Recorded PHQ-2 Score 0 11/05/2024 Adolescent Education Answer Date Record ed Getting School Help Needed Not on file 07/22 Sex and Gender Information Value Date Recorded Sex Assigned at Not on file 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 Notices some improvement with Eucerin, however never heels. Prednisone helped significantly, but then rash recurred once discontinued. Started Otezla 2 weeks ago. Expect onset of action within next 4-8 weeks. Prednisone taper pending onset of otezla. Refilled topical clboetasol. - Clobetasol ointment BID, and at bedtime under occlsuios - Urea 20% cream BID to areas of scale. Reminder to verify ingredients with [facility] - Prednisone taper 40 mg x 3 days, 30 mg x 3 days, 20 mg x 14 days, 10 mg x 5 days, 5 mg x 5 days. 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 Plan to try again once patient is enrolld in Medicare come December 06. Noticed some improvement w roflumilast jun 2024 - sep 2024. Noticed flare of hands with discontinuation. Started Otezla October 2024 following a prednisone taper. At this time, prednisone taper is most helpful. Continue otezla, restart topicals, and prednisone taper over the next few weeks pending onset of otezla. 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 This initially presented as a flat rash on the legs and thighs; improved s/p narrowband UVB therapy at [facility] x 3 months (1070 mj 7 minutes and 8 seconds). Now presenting with diffuse rash, biopsy most consistent with psoriasiform dermatitis. Discoid patches on lateral thighs appear consistent with MF. - continue topical steroids bid prn - Otezla per above - Future considerations: methotrexate (home NBUVB not covered by insurance) Follow-up: 3 month(s) in-person, or earlier for new or changing lesions documented in this encounter Plan of Treatment Upcoming Encounters Date Type Department Care Team (Late st Contact Info) Description 03/30/2025 10:00 AM CDT Office Visit [facility] Clinic [address] [place] [address] Ebony Avina MD [address] [address] documented as of this encounter Visit Diagnoses Not on filedocumented in this encounter Care Teams Space And Missile Defense Operations Relationship Specialty Start Date End Date Lv Samuel MD [facility] [id number] [place] [address] PCP - General Family Medicine 09/25/23 Ebony Avina MD [address] [address] Dermatology 01/26/23 Diamond Blanchard [facility] [address] [place] [address] LUCI MENDEZ [address] Pharmacist Pharmacist 11/14/23 Diamond Blanchard Edwin [address] [place] [address] LUCI MENDEZ [address] Assigned MTM Pharmacist 11/30/23 Ebony Avina MD [address] [address] Assigned Dermatology Provider 12/28/24 documented as of this encounter
--- OUTSIDE RECORDS SUMMARY | 2025-03-03 14:52 | XMS_ITS | Clinical Summary ---
Author Organization [facility] Address [address] [place] [address] Care Team Providers Care Stock Parts Fabricator Name Role Phone Ebony Avina MD Unavailable [phone] Lv Samuel MD Primary Care Provider [phone] Diamond Blanchard [facility] Unavailable [phone] Diamond Blanchard [facility] Unavailable [phone] Ebony Avina MD Unavailable [phone] Allergies Active Allergy Reactions Criticality Noted Date Comments Acitretin Hives 05/28/2024 Acitretin x 5 days - developed hives/rash all over body Dust Mites 02/18/2024 Medications atorvastatin (LIPITOR) 40 MG tablet Take 40 mg by mouth daily. 3 Active triamcinolone (KENALOG) 0.1 % external ointmentIndicat ions:Psoriasifo rm dermatitis Apply topically 2 times daily. Apply to directly to skin, especially after shower. Then cover with vaseline. 454 g 3 4 Active hydrOXYzine HCl (ATARAX) 25 MG tabletIndicatio ns:Other atopic dermatitis,Psor iasiform dermatitis Take 2 tablets (50 mg) by mouth at bedtime. Please take one or two tablets at night before bed. Please do not combine with other sedatives (prescription or over the counter) and limit consumption of alcohol. Do not operate heavy machinery while taking this medication 30 tablet 1 4 Active Apremilast (OTEZLA) 10 & 20 & 30 MG TBPKIndications :Other atopic dermatitis Take 1 tablet in the morning on day 1, then take 1 tablet every 12 hours on day 2 through 28, according to the instructions on the packet. 55 each 5 Active apremilast (OTEZLA) 30 MG tabletIndicatio ns:Other atopic dermatitis Take 1 tablet (30 mg) by mouth 2 times daily. 60 tablet 2 5 Active clobetasol (TEMOVATE) 0.05 % external ointmentIndicat ions:Hand dermatitis Apply topically 2 times daily. To affected areas on hands/feet 120 g 1 5 Active triamcinolone (KENALOG) 0.1 % external creamIndication s:Hand dermatitis,Psor iasiform dermatitis Apply topically 2 times daily. To body. 454 g 3 5 Active roflumilast (DALIRESP) 500 MCG TABS tabletIndicatio ns:Other atopic dermatitis Take 0.5 tablet (250 mcg) by mouth daily for 4 weeks, then if tolerating increase to 1 tablet (500 mcg) daily thereafter. Please apply Tech[employer] card: BIN: [id number] ; PCN: KRISTAL ; Group: AN ; ID#: [id number] 30 tablet 2 5 Active predniSONE (DELTASONE) 10 MG tabletIndicatio ns:Psoriasiform dermatitis Take 4 tablets (40 mg) by mouth daily for 5 days, THEN 3 tablets (30 mg) daily for 5 days, THEN 2 tablets (20 mg) daily for 5 days, THEN 1 tablet (10 mg) daily for 5 days, THEN 1 tablet (10 mg) every other day for 5 days. 55 tablet 5 Active Active Problems No known active problems Encounters Date Type Department Care Team Description 03/02/2025 [facility] Medical Advice [facility] [address] [phone] Ebony Avina MD 01/17/2025 [facility] Medical Advice [facility] [address] [phone] Ebony Avina MD 01/05/2025 [facility] Medical Advice [facility] [address] [phone] Ebony Avina MD Hand dermatitis (Primary Dx); Psoriasiform dermatitis 12/25/2024 [facility] Medical Advice [facility] [address] [phone] Ebony Avina MD 12/24/2024 Telephone [facility] [address] [phone] Ebony Avina MD Prior Auth - Medication (Roflumilast 500 mcg tablets - [place] Appeal Denied) 12/10/2024 Medical Correspondence [facility] Information Management [address] [place] [address] [address] [place] [address] Scan, Non-Provider 12/06/2024 [facility] Medical Advice [facility] [address] [phone] Diamond Blanchard, [facility] Other atopic dermatitis 12/06/2024 My[facility] Medical Advice [facility] [address] [phone] Ebony Avina MD 12/06/2024 Telephone [facility] [address] [phone] Ebony Avina MD Prior Auth - Medication (Otezla - [place] Appeal Denied) from Last 3 Months Immunizations Immunization Administration Dates Next Due Influenza Vaccine >6 months,quad, PF 10/14/2020, 12/04/2019 TDAP (Adacel,Boostrix) 10/15/2008 Td (Adult), Adsorbed 07/01/2019,08/17/1999 Zoster recombinant adjuvanted (Shingrix) 020,12/04/2019 Family History Medical History Relation Comments Melanoma Father Skin Cancer No family hx of Relation Status Comments Father Social History Tobacco Use Types Packs/Day Years Used Date Smoking Tobacco: Former Cigarettes Q uit: 02/25/1993 Smokeless Tobacco: Never Tobacco Cessation:Counseling Given: Not Answered PHQ-2 Answer Date Recorded PHQ-2 Score 0 11/05/2024 Adolescent Education Answer Date Record ed Getting School Help Needed Not on file 07/22 Sex and Gender Information Value Date Recorded Sex Assigned at Not on file 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 Gender Identity Not on file Sexual Orientation Not on file Last Filed Vital Signs Vital Sign Reading Time Taken Comments Blood Pressure 149/100 09/25/2023 7:56 PM CYBER DEFENSE FORENSICS ANALYST Pulse 88 09/25/2023 7:56 PM CYBER DEFENSE FORENSICS ANALYST Temperature 36.4 C (97.5 F) 09/25/2023 7:56 PM CYBER DEFENSE FORENSICS ANALYST Respiratory Rate 18 09/25/2023 7:56 PM CYBER DEFENSE FORENSICS ANALYST Oxygen Saturation 100% 09/25/2023 7:56 PM CYBER DEFENSE FORENSICS ANALYST Inhaled Oxygen Concentration - - Weight - - Height - - Body Mass Index - - Plan of Treatment Upcoming Encounters Date Type Department Care Team (Late st Contact Info) Description 03/30/2025 10:00 AM CDT Office Visit [facility] [address] [place] [phone] Ebony Avina MD [address] [facility] [address] [place] [address] Health Maintenance Due Date Last Done Comments ADVANCE CARE PLANNING 1960 ANNUAL REVIEW OF HM ORDERS 1960 CT COLONOGRAPHY 1960 DIABETES SCREENING 1960 FIT 1960 FLEX SIG 1960 LIPID 1960 sDNA (Cologuard) 1960 HIV SCREENING 12/20/1974 PNEUMOCOCCAL VACCINE 50+ YEARS (1 of 2 - PCV) 12/20/1978 RSV VACCINE (1 - Risk 60-74 years 1-dose series) 2019 COVID-19 VACCINE ( - season) 2024 07/23/2021, 01/28/2021, 01/08/2021 AORTIC ANEURYSM SCREENING (SYSTEM ASSIGNED) 12/20/2024 FALL RISK ASSESSMENT 12/20/2024 MEDICARE ANNUAL WELLNESS VISIT 02/11/2025 02/12/2024, 02/06/2023, 12/26/2021, Additional history exists INFLUENZA VACCINE (Season Ended) 2025 10/14/2020, 12/04/2019 COLONOSCOPY 05/23/2026 05/23/2016, 09/21/2006 COLORECTAL CANCER SCREENING 05/23/2026 DTAP/TDAP/TD VACCINE (3 - Td or Tdap) 07/01/2029 07/01/2019, 10/15/2008, 08/17/1999 HEPATITIS C SCREENING Completed 04/04/2016 ZOSTER VACCINE Completed 02/12/2020, 12/04/2019 PHQ-2 (once per calendar year) Completed 11/05/2024, 10/15/2023, 02/26/2023 HPV VACCINE Aged Out No longer eligi ble based on patient's age to complete this topic MENINGITIS VACCINE Aged Out No longer eligible based on patient's age to complete this topic Procedures Procedure Name Priority Date/Time Associated Diagnosis Comments COLONOSCOPY Routine 09/21/2006 11:10 AM CYBER DEFENSE FORENSICS ANALYST from Last 3 Months or Most Recently Relevant to Health Maintenance Results * COLONOSCOPY (09/21/2006 11:10 AM CYBER DEFENSE FORENSICS ANALYST) COLONOSCOPY Endoscopy Patient Name: Josehp Gill Gender: M Procedure Date: 09/21/2006 11:10 AM Date of : 1960 Age: 45 Admit Type: Outpatient Attending MD: Stevan Fontaine Procedure: Colonoscopy Indications: Hematochezia Providers: Stevan Fontaine MD Referring MD: Hugh Chappell MD Medicines: Fentanyl 100 mcg IV, Midazolam 2 mg IV, Atropine 0.6 mg IV Complications: No immediate complications Procedure: - A History and Physical has been performed, and patient medication allergies have been reviewed. The patient The risks and benefits of the procedure and the sedation options and risks were discussed with the patient. All questions were answered and informed consent was obtained. Patient identification and proposed procedure were verified prior to the procedure by the physician in the procedure room. Mental Status Examination: normal. Respiratory Examination: clear to auscultation. CV Examination: normal. ASA Grade Assessment: P1 A normal healthy patient. After reviewing the risks and benefits, the patient was deemed in satisfactory condition to undergo the procedure. The anesthesia plan was to use moderate sedation / analgesia (conscious sedation). Immediately prior to administration of medications, the patient was re-assessed for adequacy to receive sedatives. The heart rate, respiratory rate, oxygen saturations, blood pressure, adequacy of pulmonary ventilation, and response to care were monitored throughout the procedure. The physical status of the patient was re-assessed after the procedure. After obtaining informed consent, the colonoscope was passed under direct vision. Throughout the procedure, the patient's blood pressure, pulse, and oxygen saturations were monitored continuously. The [id number] #[id number] was introduced through the anus and advanced to the cecum, identified by appendiceal orifice & IC valve. The colonoscopy was accomplished without difficulty. The patient tolerated the procedure well. The quality of the prep was excellent. The quality of the prep was good. Findings: The digital rectal exam was normal. The rectum, sigmoid colon, descending colon, splenic flexure, transverse colon, hepatic flexure, ascending colon, cecum and ileocecal valve were normal. Internal, non bleeding, mild hemorrhoids were found. The retroflexed view of the anal verge was normal and showed no anal or rectal abnormalities. Impression: - The rectum, sigmoid colon, descending colon, splenic flexure, transverse colon, hepatic flexure, ascending colon, cecum and ileocecal valve are normal. - Internal, non bleeding, mild hemorrhoids were found. Recommendation: - Discharge patient to home (ambulatory). - Return to primary care provider PRN. Lisa Fontaine M.D Stevan Fontaine MD Signed Date: 09/21/2006 11:42 AM Number of Addenda: 0 I was physically present for the entire viewing portion of the exam. Note generated on 09/21/2006 11:12 AM RADIOLOGY RESULTS COLONOSCOPY RADIOLOG Y RESULTS 09/21/2006 11:1 0 AM CYBER DEFENSE FORENSICS ANALYST us Stevan Fontaine MD PROCEDURES Final Result RADIOLOGY RESULTS from Last 3 Months or Most Recently Relevant to Health Maintenance Insurance MEDICARE [facility] MEDICARE [facility] * Guarantor: Joseph Gill Account Type Relation to Patient Date of Phone Billing Address Medication Therapy Self 1960 [address] [place] [address] Care Teams Stock Parts Fabricator Relationship Specialty Start Date End Date Lv Samuel MD [facility] [address] [place] [address] PCP - General Family Medicine 09/25/23 Ebony Avina MD [address] [place] [address] Dermatology 01/26/23 Diamond Blanchard RPH [address] [facility] [place] [id number] Pharmacist Pharmacist 11/14/23 Diamond Blanchard RPH [address] [facility] [place] [address] Assigned MTM Pharmacist 11/30/23 Ebony Avina MD [address] [place] [address] [address] [place], [place] [address] Assigned Dermatology Provider 12/28/24
--- OUTSIDE RECORDS SUMMARY | 2025-03-03 14:52 | XMS_ITS | Encounter Summary ---
Author Organization [facility] Address [address] [place] [address] Care Team Providers Care Pin Machine Operator Name Role Phone Ebony Avina MD Unavailable [phone] Lv Samuel MD Primary Care Provider [phone] Diamond Blanchard [facility] Unavailable [phone] Diamond Blanchard [facility] Unavailable [phone] Ebony Avina MD Unavailable [phone] Ebony Avina MD Unavailable [phone] Encounter Details Date Type Department Care Team (Late st Contact Info) Description 12/25/2024 [facility] Medical Advice [facility] [address] [place] [address] Ebony Avina MD [address] [place] [address] [address] [place], [place] [id number] Social History Tobacco Use Types Packs/Day Years Used Date Smoking Tobacco: Former Cigarettes Q uit: 02/25/1993 Smokeless Tobacco: Never PHQ-2 Answer Date Recorded PHQ-2 Score 0 11/05/2024 Adolescent Education Answer Date Record ed Getting School Help Needed Not on file 07/22 Sex and Gender Information Value Date Recorded Sex Assigned at Not on file 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 Gender Identity Not on file Sexual Orientation Not on file documented as of this encounter Plan of Treatment Upcoming Encounters Date Type Department Care Team (Late st Contact Info) Description 03/30/2025 10:00 AM CDT Office Visit [facility] [address] [place] [phone] Ebony Avina MD [address] [address] documented as of this encounter Visit Diagnoses Not on filedocumented in this encounter Care Teams Pin Machine Operator Relationship Specialty Start Date End Date Lv Samuel MD [address] [address] PCP - General Family Medicine 09/25/23 Ebony Avina MD [address] [address] Dermatology 01/26/23 Diamond Blanchard [facility] [address] [place] [address] [place] [id number] Pharmacist Pharmacist 11/14/23 Diamond Blanchard [facility] [address] [place] [address] [place] [id number] Assigned MTM Pharmacist 11/30/23 Ebony Avina MD [address] [address] Assigned Surgical Provider 09/29/24 Ebony Avina MD [address] [address] Assigned Dermatology Provider 12/28/24 documented as of this encounter
--- NOTE | 2025-03-03 14:57 | CRLHL7_ITS ---
For Patients: As a result of the Cures Act, medical imaging exams and procedure reports are released immediately into your electronic medical record. You may view this report before your referring provider. If you have questions, please contact your health care provider. INDICATION: Edema. TECHNIQUE: Chest 1 portable view. COMPARISON: None. FINDINGS: No pneumothorax or pleural effusion. 2.7 cm nodular density in the right hilar region. Lungs otherwise clear. Cardiac and mediastinal contours otherwise within normal limits. Upper abdomen and osseous structures as imaged show no acute abnormality. IMPRESSION: Right hilar density concerning for pulmonary nodule or lymphadenopathy. Follow-up chest CT with IV contrast is recommended if the etiology of this finding is not known. Dictated by Rory Diallo MD @ 03/03/2025 3:59:08 PM (Electronically Signed)
[2025-03-03 15:08] LABS: Basophils Absolute Auto 0.05 K/uL (0.00-0.30); Basophils Percent Auto 0.8 % (0.0-3.0); Eosinophils Absolute Auto 0.17 K/uL (0.00-0.50); Eosinophils Percent Auto 2.8 % (0.0-7.0); Hemoglobin* 14.7 gm/dL (13.5-17.5); Immature Granulocytes Abs Auto 0.09 K/uL (0.00-0.30); Immature Granulocytes Pct Auto 1.5 %; Lymphocytes Percent Auto 15.1 % (20-44); Mean Corpuscular HGB Conc 34 gm/dL (32-36); Mean Corpuscular Hemoglobin 30 pg (26-34); Mean Corpuscular Volume 89 fL (80-100); Monocytes Percent Auto 21.6 % (0.0-11.0); Neutrophils Absolute Auto 3.55 K/uL (1.7-7.0); Neutrophils Percent Auto 58.2 % (42.0-72.0); Platelet Count* 212 K/uL (140-440); RDW Coefficient of Variation % 11.7 % (11.5-15.5); Red Blood Count 4.86 m/uL (4.30-5.90)
[2025-03-03 15:17] LABS: Appearance Urine Clear (Clear); Bilirubin Urine Negative (Negative); Blood Urine Trace-intact (Negative); Color Urine Yellow (Yellow); Glucose Urine Negative (Negative); Ketones Urine Negative (Negative); Leukocyte Esterase Urine Negative (Negative); Nitrite Urine Negative (Negative); Protein Urine Negative (Negative); Specific Gravity Urine 1.025 (1.000-1.030); Urobilinogen Urine 0.2 (0.2-1.0); pH Urine 5.5 (5.0-8.5)
[2025-03-03 15:27] LABS: Slide Review Reflex No
[2025-03-03 15:34] LABS: Chloride* 102 mmol/L (96-114)
[2025-03-03 15:35] LABS: Albumin* 4.5 g/dL (3.3-5.0); Potassium* 3.7 mmol/L (3.6-5.1); Sodium* 140 mmol/L (135-149)
[2025-03-03 15:37] LABS: Blood Urea Nitrogen* 19 mg/dL (7-30); Creatinine* 0.9 mg/dL (0.5-1.5); Est. Creatinine Clearance* 73.65; Estimated Glomerular Filt Rate 95 ml/min
[2025-03-03 15:38] LABS: Alanine Aminotransferase* 41 U/L (4-50); Alkaline Phosphatase* 76 U/L (40-150); Anion Gap 10 mEq/L (7-15); Aspartate Amino Transferase* 41 U/L (12-35); Bilirubin Total* 1.5 mg/dL (0.1-1.5); Calcium* 9.2 mg/dL (8.4-10.6); Carbon Dioxide* 28 mmol/L (20-32); Glucose* 193 mg/dL (60-115); Total Protein* 7.5 g/dL (6.0-8.3)
[2025-03-03 15:40] VITALS: BP 147/86; PULSE 78; RESP 16; O2SAT 98
[2025-03-03 15:41] LABS: C Reactive Protein* 1.6 mg/dL (0.5-1.0)
[2025-03-03 15:47] LABS: RBC Urine 0-2 (0-2); WBC Urine 0-2 (0-5)
[2025-03-03 15:57] LABS: NT Pro B Type NatriureticPept* 25 pg/mL (See Note); Troponin I* < 0.01 ng/mL (0.01-0.04)
[2025-03-03 16:44] LABS: Erythrocyte SedimentationRate* 14 mm/hr (2-15)
[2025-03-03 17:40] VITALS: BP 144/89; PULSE 87; RESP 16; O2SAT 96
[2025-03-03 18:36] VITALS: BP 149/97; PULSE 94; RESP 16
== END 2025-03-03 18:37 | disposition home or self-care (01) ==
PROVIDERS: Emergency Provider Family Medicine; PCP Family Medicine
DX: C84.00 Mycosis fungoides, unspecified site (principal)
CPT/HCPCS: 36415; 71045; 80053; 81001; 83880; 84443; 84484; 85025; 85651; 86140; 93005; 99284